=== PATIENT | female | born 1990 | race Caucasian/White ===

== ENCOUNTER 2016-10-10 19:59 | Emergency (ER) | payer OTHER ==
[~2016-10-10] VITALS: Ht 162.6 cm; Wt 52.2 kg
[~2016-10-10 19:59] MED LIST: CITRANATAL B-C1 EAC1; CLEOCIN HCL150 MG PO; IBUPROFEN 600600 M1; IBUPROFEN 800800 M1 PO; NOHOMEMEDICATIONS; NORCO 5-325 TA1 EACH; PRENATAL; VALTREX 500 MG500 M1
[2016-10-10 20:01] VITALS: BP 127/77
[2016-10-10] MEDS ORDERED: AMBIEN 5 MG TABL5 M1 PO (20:11)
[2016-10-10] MEDS ORDERED: KLONOPIN0.5 MG PO (20:11)
[2016-10-10] MEDS ORDERED: [UNRECOGNIZED DRUG - OTHER] (20:14)
[2016-10-10 20:31] LABS: URINE BILIRUBIN NEGATIVE (Negative); URINE BLOOD TRACE (Negative); URINE COLOR YELLOW; URINE GLUCOSE-RANDOM* NEGATIVE (Negative); URINE KETONES NEGATIVE (Negative); URINE NITRITE NEGATIVE (Negative); URINE PROTEIN (DIPSTICK) NEGATIVE (Negative); URINE SPECIFIC GRAVITY <= 1.005 (1.003-1.035); URINE UROBILINOGEN 0.2 E.U./dl (0.2-1.0)
[2016-10-10 20:37] LABS: ABSOLUTE NEUTROPHILS 2.1 thou/uL (1.4-8.2); EOSINOPHILS 2.4 % (0.0-3.0); HEMATOCRIT 37.9 % (37.0-47.0); HEMOGLOBIN 13.3 gm/dL (12.0-15.0); LYMPHOCYTES 42.5 % (24.0-44.0); MCH 30.5 pg (26.0-34.0); MCHC 35.1 g/dL (28.0-37.0); MONOCYTES 9.4 % (1.0-8.0); PLATELET COUNT 326 thou/uL (150-400); POLYS 44.7 % (36.0-66.0); RBC 4.35 mil/uL (4.20-5.00); RDW 14.1 % (10.5-14.5); WBC 4.8 thou/uL (4.0-11.0)
[2016-10-10 20:40] LABS: MANUAL DIFF NO
[2016-10-10 20:41] LABS: CALCIUM 8.5 mg/dL (8.5-10.1); CREATININE 0.7 mg/dL (0.6-1.0); POTASSIUM 3.7 mmol/L (3.5-5.1)
[2016-10-10 20:41] LABS: SQUAMOUS 4-10 Moderate /LPF (0-3)
[2016-10-10 20:42] LABS: CASTS None Seen /LPF (None Seen); URINE RBC 0-2 Rare /HPF (0-2)
[2016-10-10 20:43] LABS: BACTERIA 1-9 Few /HPF (None Seen); CRYSTALS None Seen /LPF (None Seen)
[2016-10-10] MEDS ORDERED: KEFLEX500 MG PO (21:05)
== END 2016-10-10 21:25 | disposition home or self-care (01) ==
LOC: ER 19:59
PROVIDERS: Nurse Practitioner Family
DX: O23.41 Unspecified infection of urinary tract in pregnancy, first trimester (principal); F17.210 Nicotine dependence, cigarettes, uncomplicated; Z3A.01 Less than 8 weeks gestation of pregnancy; Z86.19 Personal history of other infectious and parasitic diseases

== ENCOUNTER 2016-10-24 00:23 | Emergency (ER) | payer OTHER ==
[~2016-10-24] VITALS: Ht 162.6 cm; Wt 52.2 kg
[~2016-10-24 00:23] MED LIST changes: +AMBIEN 5 MG TABL5 M1 PO; +KEFLEX500 MG PO; +KLONOPIN0.5 MG PO; +[UNRECOGNIZED DRUG - OTHER]
[2016-10-24] MEDS ORDERED: TRINATE TABLET1 TAB PO (00:41)
[2016-10-24 01:09] LABS: HEMATOCRIT 35.9 % (37.0-47.0); HEMOGLOBIN 12.4 gm/dL (12.0-15.0); MCH 30.1 pg (26.0-34.0); MCHC 34.6 g/dL (28.0-37.0); MCV 87.1 fL (80.0-100.0); RBC 4.12 mil/uL (4.20-5.00); RDW 13.7 % (10.5-14.5); WBC 5.7 thou/uL (4.0-11.0)
[2016-10-24 01:14] LABS: CALCIUM 8.8 mg/dL (8.5-10.1); CREATININE 0.6 mg/dL (0.6-1.0); POTASSIUM 3.7 mmol/L (3.5-5.1)
[2016-10-24 03:00] VITALS: BP 118/72
[2016-10-26 19:08] LABS: CHLAMYDIA TRACHOMATIS-PCR Negative (Negative); NEISSERIA GONORRHEA-PCR Negative (Negative)
== END 2016-10-24 03:00 | disposition home or self-care (01) ==
LOC: ER 00:23
PROVIDERS: Emergency Medicine
DX: O20.0 Threatened abortion (principal); Z3A.01 Less than 8 weeks gestation of pregnancy; F17.210 Nicotine dependence, cigarettes, uncomplicated